=== PATIENT | female | born 1955 | race Caucasian/White ===

== ENCOUNTER → 2016-12-30 11:14 | Outpatient (CLI) | payer BC ==
[2015-12-03 09:04] VITALS: BMI 36.1
[~2016-12-30 11:14] MED LIST: ALDACTONE100 MG PO; ARMOUR THYROID120 MG PO; COMMIT4 MG PO; CRESTOR20 MG PO; DEMEROL50 MG PO; GLUCOPHAGE500 MG PO; LIPITOR20 MG PO; PREDNISONE20 MG PO; PRINIVIL10 MG PO; TIROSINT88 MCG PO
== END | disposition home or self-care (01) ==
LOC: D.US 11:14
DX: R10.11 Right upper quadrant pain (principal)

== ENCOUNTER → 2017-05-11 17:19 | Outpatient (CLI) | payer BC ==
[2015-12-03 09:04] VITALS: BMI 36.1
== END | disposition home or self-care (01) ==
LOC: D.MAMMO 15:45
DX: Z12.31 Encounter for screening mammogram for malignant neoplasm of breast (principal)